=== PATIENT | male | born 1980 | race Caucasian/White ===

== ENCOUNTER 2017-05-28 14:18 | Emergency (ER) | payer OTHER ==
[~2017-05-28] VITALS: Ht 167.6 cm; Wt 60.3 kg
[~2017-05-28 14:18] MED LIST: NOHOMEMEDICATIONS; NORCO 5-325 TA1 EACH PO; ULTRAM 50MG TAB50 MG PO
[2017-05-28] MEDS ORDERED: VENTOLIN HFA 1818 GM INH (14:20)
[2017-05-28 14:49] LABS: ABSOLUTE BASOPHILS 0.1 thou/uL (0.0-0.2); ABSOLUTE EOSINOPHILS 0.2 thou/uL (0.0-0.7); ABSOLUTE LYMPHOCYTES 2.1 thou/uL (0.8-5.3); ABSOLUTE MONOCYTES 0.4 thou/uL (0.0-1.2); BASOPHILS 0.9 %; EOSINOPHILS 2.8 %; HEMOGLOBIN 15.2 gm/dL (14.0-18.0); LYMPHOCYTES 30.5 %; MCH 32.5 pg (26.0-34.0); MCHC 34.5 g/dL (28.0-37.0); MCV 94.2 fL (80.0-100.0); MONOCYTES 6.1 %; MPV 6.8 fl. (7.2-11.1); NUCLEATED RBCS 0 /100WBC; PLATELET COUNT* 289 thou/uL (150-400); POLYS 59.7 %; RBC 4.67 mil/uL (4.50-6.00); RDW-CV 12.1 % (10.5-14.5); WBC 6.8 thou/uL (4.0-11.0)
[2017-05-28 14:57] LABS: ANION GAP 7 mmol/L (7-16); BUN 17 mg/dL (7-18); CALCIUM 8.1 mg/dL (8.5-10.1); CHLORIDE 108 mmol/L (98-107); CO2 27 mmol/L (21-32); GLUCOSE 142 mg/dL (70-99); POTASSIUM 3.6 mmol/L (3.5-5.1); SODIUM 142 mmol/L (136-145)
[2017-05-28 15:03] LABS: APTT 27.7 Seconds (25.0-31.3); INR 1.1; PROTIME 10.4 Seconds (9.20-11.50)
[2017-05-28 15:13] LABS: ALKALINE PHOSPHATASE 95 U/L (46-116); LIPASE 107 U/L (73-393); MAGNESIUM 2.1 mg/dL (1.8-2.4); SGOT 20 U/L (15-37); TOTAL BILIRUBIN 0.4 mg/dL (<0.1-1.0)
[2017-05-28 15:14] LABS: ALBUMIN 3.1 g/dL (3.4-5.0); NT-PRO BRAIN NAT PEPTIDE 68 pg/mL (<300); SGPT 24 U/L (30-65); TOTAL PROTEIN 6.2 g/dL (6.4-8.2); TROPONIN-I LEVEL <0.06 ng/mL (<0.06)
[2017-05-28 15:16] LABS: CK-MB MASS 2.1 ng/mL (<0.5-3.6)
[2017-05-28 15:29] VITALS: BP 124/67
--- NOTE | 2017-05-29 17:51 | EKG ---
[place] [address] ELECTROCARDIOGRAM REPORT Name: SONA GREWAL Room: [facility]#: [id number] Admission: 05/28/17 Attend Phys: Discharge: 05/28/17 Date of : 80 Report #: [id number] THIS REPORT FOR: //name// [facility] ED Test Date: 2017-05-28 Test Time: 14:32:32 Pat Name: SONA GREWAL Department: Room: Gender: M Medical Staff Coordinator: ADJUTANT GENERAL : 1980 Requested By: Pablo Galvan Order Number: [id number] MD: Dariel Farfan Measurements Intervals [place] Rate: 82 P: 88 [place]: 162 QRS: 80 QRSD: 88 T: 75 QT: 364 QTc: 425 Interpretive Statements Sinus rhythm Compared to ECG 03/09/2009 13:58:11 No significant change Electronically Signed On 05-29-2017 17:51:12 CDT by Dariel Farfan [email or web address] <ELECTRONICALLY SIGNED> By: Dariel Farfan MD, [facility] 05/29/17 1751 1432 1432 Dariel Farfan MD, FACC /EPI
== END 2017-05-28 15:31 ==
LOC: M.ERS 14:18
PROVIDERS: Family Medicine
DX: R07.9 Chest pain, unspecified (principal); I10 Essential (primary) hypertension

== ENCOUNTER 2017-09-18 10:36 | Emergency (ER) | payer OTHER ==
[~2017-09-18] VITALS: Ht 167.6 cm; Wt 63.5 kg
[~2017-09-18 10:36] MED LIST changes: +VENTOLIN HFA 1818 GM INH
[2017-09-18 11:11] LABS: ABSOLUTE BASOPHILS 0.1 thou/uL (0.0-0.2); ABSOLUTE EOSINOPHILS 0.3 thou/uL (0.0-0.7); ABSOLUTE LYMPHOCYTES 1.9 thou/uL (0.8-5.3); ABSOLUTE MONOCYTES 0.5 thou/uL (0.0-1.2); ABSOLUTE NEUTROPHILS 5.4 thou/uL (1.6-8.1); EOSINOPHILS 3.9 %; HEMATOCRIT 44.5 % (42.0-52.0); HEMOGLOBIN 15.2 gm/dL (14.0-18.0); LYMPHOCYTES 22.9 %; MCH 32.4 pg (26.0-34.0); MCHC 34.1 g/dL (28.0-37.0); MCV 95.1 fL (80.0-100.0); MONOCYTES 6.2 %; MPV 6.9 fl. (7.2-11.1); NUCLEATED RBCS 0 /100WBC; PLATELET COUNT* 307 thou/uL (150-400); RBC 4.68 mil/uL (4.50-6.00); RDW-CV 12.6 % (10.5-14.5); WBC 8.2 thou/uL (4.0-11.0)
[2017-09-18 11:33] LABS: CALCIUM 8.5 mg/dL (8.5-10.1); POTASSIUM 4.1 mmol/L (3.5-5.1)
[2017-09-18 11:57] VITALS: BP 133/73
--- NOTE | 2017-09-19 10:24 | EKG ---
[place] [address] ELECTROCARDIOGRAM REPORT Name: SONA GREWAL Room: [facility]#: [id number] Admission: 09/18/17 Attend Phys: Discharge: 09/18/17 Date of : [birth year] Report #: [id number] THIS REPORT FOR: //name// [facility] ED Test Date: 2017-09-18 Test Time: 11:08:05 Pat Name: SONA GREWAL Department: Room: Gender: M Public Health Nutritionist: Carla ROE : 1980 Requested By: Yonatan Hays Order Number: [id number] MD: Kunal Xavier Measurements Intervals [place] Rate: 80 P: 73 [place]: 156 QRS: 69 QRSD: 75 T: 69 QT: 363 QTc: 419 Interpretive Statements Sinus rhythm ST elev, probable normal early repol pattern Compared to ECG 05/28/2017 14:32:32 ST (T wave) deviation now present Electronically Signed On 09-19-2017 10:24:04 CDT by Kunal Xavier [email or web address] <ELECTRONICALLY SIGNED> By: Kunal Xavier MD, [facility] 09/19/17 1024 1108 1108 Kunal Xavier MD, [facility] /EPI
== END 2017-09-18 11:58 ==
LOC: M.ERS 10:36
PROVIDERS: Emergency Medicine Emergency Medical Services
DX: S06.0X0A Concussion without loss of consciousness, initial encounter (principal); S01.111A Laceration without foreign body of right eyelid and periocular area, initial encounter; I10 Essential (primary) hypertension; X99.0XXA Assault by sharp glass, initial encounter; Y93.89 Activity, other specified; Y92.89 Other specified places as the place of occurrence of the external cause; Y99.8 Other external cause status

== ENCOUNTER 2018-01-08 07:20 | Emergency (ER) | payer OTHER ==
[~2018-01-08] VITALS: Ht 167.6 cm; Wt 63.5 kg
[2018-01-08] MEDS ORDERED: KEFLEX500 M1 PO (07:59)
[2018-01-08] MEDS ORDERED: BACTRIM DS TAB1 EACH PO (07:59)
[2018-01-08] MEDS ORDERED: NORCO 5-325 TA1 EACH PO (07:59)
[2018-01-08 08:06] VITALS: BP 145/81
== END 2018-01-08 08:14 | disposition home or self-care (01) ==
LOC: M.ERS 07:20
DX: L03.116 Cellulitis of left lower limb (principal); I10 Essential (primary) hypertension; F17.210 Nicotine dependence, cigarettes, uncomplicated

== ENCOUNTER 2019-06-15 10:14 | Emergency (ER) | payer OTHER ==
[~2019-06-15] VITALS: Ht 162.6 cm; Wt 57.1 kg
[~2019-06-15 10:14] MED LIST changes: +BACTRIM DS TAB1 EACH PO; +KEFLEX500 M1 PO
[2019-06-15 10:35] LABS: ABSOLUTE BASOPHILS 0.1 thou/uL (0.0-0.2); ABSOLUTE EOSINOPHILS 0.1 thou/uL (0.0-0.7); ABSOLUTE LYMPHOCYTES 1.3 thou/uL (0.8-5.3); ABSOLUTE MONOCYTES 0.8 thou/uL (0.0-1.2); BASOPHILS 0.9 %; EOSINOPHILS 0.7 %; HEMATOCRIT 44.9 % (42.0-52.0); HEMOGLOBIN 15.8 gm/dL (14.0-18.0); LYMPHOCYTES 10.9 %; MCH 32.2 pg (26.0-34.0); MCHC 35.1 g/dL (28.0-37.0); MCV 91.7 fL (80.0-100.0); MONOCYTES 6.4 %; MPV 6.6 fl. (7.2-11.1); NUCLEATED RBCS 0 /100WBC; PLATELET COUNT* 366 thou/uL (150-400); POLYS 81.1 %; RBC 4.89 mil/uL (4.50-6.00); RDW-CV 12.3 % (10.5-14.5); WBC 12.3 thou/uL (4.0-11.0)
[2019-06-15 10:47] LABS: CALCIUM 8.3 mg/dL (8.5-10.1); CREATININE 1.6 mg/dL (0.6-1.3); POTASSIUM 3.6 mmol/L (3.5-5.1)
[2019-06-15 11:02] LABS: ALBUMIN 3.6 g/dL (3.4-5.0); TOTAL BILIRUBIN 0.2 mg/dL (<0.1-1.0); TOTAL PROTEIN 7.3 g/dL (6.4-8.2)
[2019-06-15 11:59] LABS: URINE BILIRUBIN NEGATIVE (Negative); URINE BLOOD 1+ (Negative); URINE CLARITY CLEAR; URINE COLOR YELLOW; URINE GLUCOSE-RANDOM NEGATIVE (Negative); URINE KETONES NEGATIVE (Negative); URINE LEUKOCYTES-REFLEX NEGATIVE (Negative); URINE NITRITE-REFLEX NEGATIVE (Negative); URINE PROTEIN TRACE (Negative); URINE UROBILINOGEN 0.2 E.U./dl (0.2-1.0)
[2019-06-15 12:07] LABS: AMP/METHAMP POSITIVE (Negative); BARBITURATES Negative (Negative); BENZODIAZEPINES Negative (Negative); COCAINE Negative (Negative); METHADONE Negative (Negative); OPIATES Negative (Negative); PCP Negative (Negative); THC Negative (Negative)
[2019-06-15 12:09] LABS: BACTERIA-REFLEX None Seen /HPF (None Seen); CRYSTALS None Seen /LPF (None Seen); HYALINE CASTS 0-3 Few /LPF (None Seen); MUCUS 0-3 Light strn/LPF (None Seen); SQUAMOUS NONE SEEN /LPF (0-3); URINE RBC 0-2 Rare /HPF (0-2); URINE WBC-REFLEX None Seen /HPF (0-5)
[2019-06-15] MEDS ORDERED: FLEXERIL PO (13:00)
[2019-06-15] MEDS ORDERED: IBUPROFEN 800800 M1 PO (13:00)
[2019-06-15] MEDS ORDERED: KEFLEX500 M1 PO (13:00)
[2019-06-15 13:18] VITALS: BP 127/67
--- NOTE | 2019-06-15 15:18 | EKG ---
[place] [address] ELECTROCARDIOGRAM REPORT Name: SONA GREWAL Room: [facility]#: [id number] Admission: 06/15/19 Attend Phys: Discharge: 06/15/19 Date of : 80 Date of Service: 06/15/19 1022 Report #: [id number] THIS REPORT FOR: //name// [facility] ED Test Date: 2019-06-15 Test Time: 10:22:59 Pat Name: SOAN GREWAL Department: Room: Gender: Stunt Performer: : 1980 Requested By: Yonatan Hays Order Number: [id number] MD: Ross Chavarria Measurements Intervals [place] Rate: 120 P: 87 [place]: 180 QRS: 74 QRSD: 78 T: 48 QT: 304 QTc: 430 Interpretive Statements Sinus tachycardia LAE, consider biatrial enlargement Probable left ventricular hypertrophy Compared to ECG 09/18/2017 11:08:05 Sinus rhythm no longer present Electronically Signed On 06-15-2019 15:16:50 CDT by Ross Chavarria [email or web address] <ELECTRONICALLY SIGNED> By: Ross Chavarria MD, [facility] 06/15/19 1516 1022 1022 Ross Chavarria MD, [facility] /EPI
== END 2019-06-15 13:22 | disposition home or self-care (01) ==
LOC: M.ERS 10:14
PROVIDERS: Emergency Medicine Emergency Medical Services
DX: S31.811A Laceration without foreign body of right buttock, initial encounter (principal); R42 Dizziness and giddiness; I10 Essential (primary) hypertension; Z79.899 Other long term (current) drug therapy; W18.39XA Other fall on same level, initial encounter; Y93.02 Activity, running; Y92.89 Other specified places as the place of occurrence of the external cause; Y99.8 Other external cause status